=== PATIENT | female | born 1985 | race Caucasian/White ===

== ENCOUNTER 2019-11-02 13:54 | Emergency (ER) | payer MEDICAID ==
[~2019-11-02] VITALS: Ht 177.8 cm; Wt 88.5 kg
--- NOTE | 2019-11-02 14:05 | NUR ---
DR WEBBER IN TO ASSESS
[2019-11-02 14:10] VITALS: BP_SYST 127
[2019-11-02] MEDS ORDERED: ACETAMINOPHEN 500 MG TABLET PO ONE (14:15)
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
--- NOTE | 2019-11-02 15:00 | NUR ---
BACK FROM X-RAY OF LT KNEE
[2019-11-02 15:27] VITALS: BP_SYST 138
--- NOTE | 2019-11-02 15:35 | NUR ---
Patient given written and verbal discharge instructions and verbalizes understanding. ER MD discussed with patient the results and treatment provided. Patient in stable condition. ID arm band removed.Patient educated on pain management and to follow up with PMD. Pain Scale 5/10. Opportunity for questions provided and answered. Medication side effect fact sheet provided.
== END 2019-11-02 15:27 | disposition home or self-care (01) ==
LOC: SED 13:54
DX: S83.8X2A Sprain of other specified parts of left knee, initial encounter (principal); Z88.6 Allergy status to analgesic agent; W18.49XA Other slipping, tripping and stumbling without falling, initial encounter; Y93.I9 Activity, other involving external motion; Y92.89 Other specified places as the place of occurrence of the external cause; Y99.8 Other external cause status
CPT/HCPCS: 73564; 99283